=== PATIENT | female | born 1985 | race Caucasian/White ===

== ENCOUNTER 2020-03-20 19:14 | Emergency (ER) | payer BC ==
[~2020-03-20] VITALS: Ht 170.2 cm; Wt 88.9 kg
[2020-03-20 19:20] VITALS: BP 136/83
--- NOTE | 2020-03-20 19:27 | NUR ---
PT AMBULATED TO BED 12 VIA STEADY GAIT.
--- NOTE | 2020-03-20 20:23 | NUR ---
Ultrasound at bedside.
[2020-03-20 20:30] LABS: BASOPHILS # (AUTO) 0.1 K/uL (0.00-0.22); EOSINOPHILS # (AUTO) 0.2 K/uL (0-0.4); HEMATOCRIT 37.9 % (36-48); HEMOGLOBIN 12.5 g/dL (12.0-16.0); LYMPHOCYTES # (AUTO) 3.4 K/uL (2.5-16.5); LYMPHOCYTES % (AUTO) 27.8 % (20.5-51.1); MEAN CORPUSCULAR HEMOGLOBIN 29 pg (27-31); MEAN CORPUSCULAR HGB CONC 33 g/dL (33-37); MEAN CORPUSCULAR VOLUME 86.2 fL (80-94); MONOCYTES # (AUTO) 0.8 K/uL (0.8-1.0); MONOCYTES % (AUTO) 6.8 % (1.7-9.3); NEUTROPHILS # (AUTO) 7.6 K/uL (1.8-7.7); NEUTROPHILS % (AUTO) 62.4 % (42.2-75.2); PLATELET COUNT (AUTO) 318 K/uL (140-450); RED BLOOD CELL COUNT(AUTO) 4.39 MIL/uL (4.20-5.40); RED CELL DISTRIBUTION WIDTH 15.2 % (11.6-13.7); WHITE BLOOD COUNT (AUTO) 12.1 K/uL (4.8-10.8)
--- NOTE | 2020-03-20 20:40 | NUR ---
34 Y/O F C/O ABNORMAL VAGINAL BLEEDING ACCOMPANIED BY LOWER ABD PAIN X 1 DAY. PT 6 WEEKS . PT STATES THAT SHE HAS HAD A COUPLE EPISODES OF SPOTTING BUT TODAY BLEEDING IS HEAVIER COMPARED TO BEFORE. PT TRIED TO CONTACT HER OBGYN BUT UNABLE TO REACH HER DOCTOR. PT ALSO C/O LOWER ABD PAIN, RATING 5/10, DESCRIBED CONSTANT AND CRUNCHING PAIN. AIRWAY INTACT, LUNG SOUNDS CLEAR. BED LOCKED AND IN LOWEST POSITION, SIDE RAIL UPX1. WILL CONTINUE TO MONITOR. MHX: DENIES ALLERGIES: ACETAMINOPHEN
[2020-03-20 20:46] LABS: APPEARANCE,URINE SL CLOUDY (CLEAR); BILIRUBIN,URINE NEGATIVE (NEGATIVE); BLOOD, URINE 3+ (NEGATIVE); COLOR,URINE YELLOW (YELLOW); LEUKOCYTE ESTERASE ,URINE NEGATIVE (NEGATIVE); NITRITE, URINE NEGATIVE (NEGATIVE); UGLUCOSE NEGATIVE (NEGATIVE)
[2020-03-20 21:00] LABS: RBC,URINE 50-80 /HPF (0-5); WBC,URINE 0-5 /HPF (0-5)
[2020-03-20 21:01] LABS: URINE AMORPHOUS URATE 1+ /HPF (None Seen)
--- NOTE | 2020-03-20 21:10 | NUR ---
PER ELEMENTARY SECRETARY HE WAS UNABLE TO VISUALIZE ANATOMY VIA ABD ULTRASOUND. RECOMMENDED TRANSVAGINAL ULTRASOUND. PT REFUSED TRANSVAGINAL ULTRA SOUND. ERMD MADE AWARE. FLUIDS RECOMMENDED TO FILL BLADDER UP AND REATTEMPT ABD/PELVIC ULTRASOUND.
--- NOTE | 2020-03-20 21:14 | NUR ---
PT HAS BEEN PROVIDED WITH 2 PITCHERS OF WATER AT THIS TIME, WAS ABLE TO DRINK BOTH
--- NOTE | 2020-03-20 21:24 | NUR ---
PT ABLE TO FINISH 2 PITCHERS OF WATER. NO PAIN AT THIS TIME. PT RESTING IN BED LOOKING AT PHONE. PT ON SHIPPING TECHNICIAN. BED IS LOCKED AND IN LOWEST POSTION.
--- NOTE | 2020-03-20 21:38 | NUR ---
US AT BEDSIDE.
[2020-03-20 22:27] VITALS: BP 136/83
--- NOTE | 2020-03-20 22:27 | NUR ---
Patient discharged with v/s stable. Written and verbal after care instructions given and explained. Patient verbalized understanding. Ambulatory with steady gait. All questions addressed prior to discharge. Advised to follow up with PMD.
== END 2020-03-20 22:27 | disposition home or self-care (01) ==
LOC: MED 19:14
DX: O46.8X1 Other antepartum hemorrhage, first trimester (principal); O26.891 Other specified pregnancy related conditions, first trimester; Z3A.01 Less than 8 weeks gestation of pregnancy
CPT/HCPCS: 36415; 76817; 81001; 81025; 84702; 85025; 86900; 86901; 99284; Q0092

== ENCOUNTER 2020-03-23 12:08 | Emergency (ER) | payer BC ==
[~2020-03-23] VITALS: Ht 170.2 cm; Wt 88.5 kg
[2020-03-23 12:37] VITALS: BP 142/77
--- NOTE | 2020-03-23 12:40 | NUR ---
approx. 7 wk preg c/o vaginal bleeding starting today. pt brought in blood clot she passed for visualization. pt states the bleeding is controlled and she is not having pain, just mild discomfort 08/11. provided pt with gown to change into. bed in low position, side rail up x1.
--- NOTE | 2020-03-23 12:47 | NUR ---
Pt ambulated to bed 08
--- NOTE | 2020-03-23 12:48 | NUR ---
Pt ambulated to restroom for collection of urine
--- NOTE | 2020-03-23 13:30 | NUR ---
Dr Blevins at bedside examining pt
--- NOTE | 2020-03-23 14:09 | NUR ---
Pt advised to wait in lobby for result of blood work, verbalizes understanding. Ambulated to lobby with steady gait.
[2020-03-23 14:34] LABS: BASOPHILS # (AUTO) 0.1 K/uL (0.00-0.22); BASOPHILS % (AUTO) 0.7 % (0.0-2.0); EOSINOPHILS # (AUTO) 0.2 K/uL (0-0.4); EOSINOPHILS % (AUTO) 1.4 % (0.0-4.0); HEMATOCRIT 37.4 % (36-48); HEMOGLOBIN 12.2 g/dL (12.0-16.0); LYMPHOCYTES # (AUTO) 2.7 K/uL (2.5-16.5); LYMPHOCYTES % (AUTO) 22.8 % (20.5-51.1); MEAN CORPUSCULAR HEMOGLOBIN 28 pg (27-31); MEAN CORPUSCULAR HGB CONC 33 g/dL (33-37); MEAN CORPUSCULAR VOLUME 86.4 fL (80-94); MONOCYTES # (AUTO) 0.8 K/uL (0.8-1.0); MONOCYTES % (AUTO) 6.4 % (1.7-9.3); NEUTROPHILS # (AUTO) 8.3 K/uL (1.8-7.7); NEUTROPHILS % (AUTO) 68.7 % (42.2-75.2); PLATELET COUNT (AUTO) 303 K/uL (140-450); RED BLOOD CELL COUNT(AUTO) 4.33 MIL/uL (4.20-5.40); RED CELL DISTRIBUTION WIDTH 14.9 % (11.6-13.7)
[2020-03-23 14:53] LABS: APPEARANCE,URINE SL CLOUDY (CLEAR); BILIRUBIN,URINE NEGATIVE (NEGATIVE); BLOOD, URINE 3+ (NEGATIVE); COLOR,URINE YELLOW (YELLOW); LEUKOCYTE ESTERASE ,URINE NEGATIVE (NEGATIVE); NITRITE, URINE NEGATIVE (NEGATIVE); PH,URINE 5.5 (5.0-9.0); UGLUCOSE NEGATIVE (NEGATIVE)
[2020-03-23 15:05] LABS: RBC,URINE >100 /HPF (0-5)
[2020-03-23 16:07] VITALS: BP 136/74
== END 2020-03-23 16:08 | disposition home or self-care (01) ==
LOC: MED 12:08
DX: O20.0 Threatened abortion (principal); R03.0 Elevated blood-pressure reading, without diagnosis of hypertension; Z3A.01 Less than 8 weeks gestation of pregnancy; Z88.6 Allergy status to analgesic agent
CPT/HCPCS: 36415; 81001; 81025; 84702; 85025; 87086; 87186; 99283

== ENCOUNTER 2023-08-03 19:45 | Emergency (ER) | payer BC ==
[~2023-08-03] VITALS: Ht 167.6 cm; Wt 86.2 kg
[2023-08-03 19:47] VITALS: BP 148/118; PULSE 98; RESP 28; TEMP 97.4; O2SAT 100
[2023-08-03] MEDS ORDERED: diphenhydrAMINE 50 MG CAP PO ONE (20:10)
[2023-08-03] MEDS ORDERED: DIPH25TA53 PO (20:19)
[2023-08-03] MEDS ORDERED: PRED20TA5 PO (20:19)
[2023-08-03 20:30] VITALS: BP 110/73; PULSE 64; RESP 14; TEMP 98.3; O2SAT 100
== END 2023-08-03 20:30 | disposition home or self-care (01) ==
LOC: MED 19:45
DX: R21 Rash and other nonspecific skin eruption (principal); R10.13 Epigastric pain; Z88.5 Allergy status to narcotic agent; Z79.899 Other long term (current) drug therapy
CPT/HCPCS: 99283; Q0163